=== PATIENT | male | born 1995 | race Two or more races ===

== ENCOUNTER 2023-08-06 18:57 | Emergency (ER) | payer OTHER ==
[~2023-08-06] VITALS: Ht 160 cm; Wt 68.0 kg
[2023-08-06] MEDS ORDERED: INDERAL LA80 MG PO (19:03)
[2023-08-06] MEDS ORDERED: SINGULAIR4 M1 PO (19:04)
[2023-08-06] MEDS ORDERED: INDERAL LA80 MG (19:12)
[2023-08-06 19:59] LABS: HEMATOCRIT 48.7 % (39.0-48.0); HEMOGLOBIN 16.6 g/dL (13-16.00); MEAN CELL VOLUME 85.5 fL (80.0-100.00); MEAN CORPUSCULAR HEMOGLOBIN 29.1 pg (27.00-32.0); PLATELET COUNT 219 K/uL (150-450); RED BLOOD COUNT 5.69 M/uL (4.00-6.00); RED CELL DISTRIBUTION WIDTH 13.2 % (11.5-14.5)
[2023-08-06 20:17] LABS: CALCIUM 9.7 mg/dL (8.5-10.1); CREATININE SERUM 1.02 mg/dL (0.70-1.30); GFR 86.96; POTASSIUM 3.8 mEq/L (3.5-5.1)
== END 2023-08-06 20:53 | disposition home or self-care (01) ==
LOC: ER 18:59
PROVIDERS: General Practice
DX: R00.2 Palpitations (principal); R53.81 Other malaise